=== PATIENT | male | born 2000 | race Caucasian/White ===

== ENCOUNTER 2021-07-13 15:37 | Emergency (ER) | payer SELFPAY ==
--- NOTE | 2021-07-13 15:56 | EDM.PDOC ---
ED HPI GENERAL MEDICAL PROBLEM - General Stated Complaint: COVID POS DIFFICULTY BREATHING Time Seen by Provider: 07/13/21 15:50 Source of Information: Reports: Patient History Limitations: Reports: No Limitations - History of Present Illness INITIAL COMMENTS - FREE TEXT/NARRATIVE: 20-year-old male who had onset of loss of taste and smell sense on 07/06/2021 and developed nasal congestion and cough following this. He also was seen at [facility] in [place] on 07/10/2021 for a Covid test and it came back positive. He reports that he has been drinking well but has had no appetite and has not really been eating well. He has had some feelings of increasing difficulty breathing over the past 2 days and some central sharp and scratchy type pain in his chest that he would rate it as a 5-6/10 for the past 2 days as well. It is worse when he takes a deep breath or coughs. He is noted over the past day that his difficulty breathing seems to have gotten worse and that caused him to come to the emergency department for evaluation. He has not been checking his oxygen levels at home. He has had no nausea, vomiting or diarrhea. There has been no weakness or dizziness. No hemoptysis. The cough is a hacking cough. There are no other associated signs or symptoms. There are no other modifying factors. Onset: Other (07/06/2021) Duration: Getting Worse Location: Reports: Head, Chest, Generalized Quality: Reports: Sharp, Other (Scratchy) Severity: Moderate Improves with: Reports: Rest Worsens with: Reports: Breathing, Other (Activity. Cough.), Movement Context: Reports: Other (As above.) Associated Symptoms: Reports: No Other Symptoms (Except as above.) Treatments CONTENT STRATEGY LEAD: Reports: Other (see below) (Nothing.) - Related Data Allergies Allergy/AdvReac Type Severity Reaction Status Date / Time No Known Allergies Allergy Verified 07/13/21 16:05 Past Medical History - Past Health History Medical/Surgical History: Denies Medical/Surgical History - Past Surgical History Other Surgical History Comment: No previous surgeries. Social & Family History - Tobacco Use Tobacco Use Status *Q: Current Every Day Tobacco User - Alcohol Use Alcohol Use History: Yes Alcohol Use Frequency: Socially ED ROS GENERAL - Review of Systems Review Of Systems: See Below Constitutional: Reports: Fever, Chills, Malaise, Fatigue, Decreased Appetite HEENT: Reports: Throat Pain, Other (Nasal congestion.) Respiratory: Reports: Shortness of Breath, Cough Cardiovascular: Reports: Chest Pain, Dyspnea on Exertion Endocrine: Reports: Fatigue GI/Abdominal: Denies: Abdominal Pain, Nausea, Vomiting : Denies: Dysuria, Hematuria Musculoskeletal: Reports: Other (Bodyaches.) Skin: Denies: Diaphoresis, Rash Neurological: Reports: Headache. Denies: Dizziness Hematologic/Lymphatic: Denies: Easy Bleeding, Easy Bruising Immunologic: Reports: Other (The patient has not been immunized against Covid) ED EXAM, GENERAL - Physical Exam Exam: See Below Exam Limited By: No Limitations General Appearance: Alert, WD/WN, Mild Distress ('s restaurant rate is somewhat increased. He is awake, alert and appropriately responsive and interactive.) Eye Exam: Bilateral Eye: EOMI, Normal Inspection Ears: Normal External Exam, Hearing Grossly Normal Ear Exam: Bilateral Ear: Auricle Normal Nose: No Blood, Nasal Drainage Throat/Mouth: Normal Lips, Normal Voice, No Airway Compromise, Other (Moist mucous membranes. Erythema posteriorly.) Neck: Normal Inspection, Supple, Non-Tender, Full Range of Motion Respiratory/Chest: Lungs Clear, Normal Breath Sounds, No Accessory Muscle Use, Chest Non-Tender, Other (Somewhat increased respiratory rate.) Cardiovascular: Normal Peripheral Pulses, Regular Rate, Rhythm, No Murmur Peripheral Pulses: 2+: Radial (L), Radial (R) GI/Abdominal: Normal Bowel Sounds, Soft, Non-Tender Back Exam: Normal Inspection Extremities: Normal Inspection, Normal Range of Motion, Non-Tender, No Pedal E andree, Normal Capillary Refill Neurological: Alert, Oriented, CN II-XII Intact, Normal Cognition, No Motor/Sensory Deficits Psychiatric: Normal Affect Skin Exam: Warm, Dry, Intact, Normal Color, No Rash #1 Interpretation EKG Date: 07/13/21 Time: 15:52 Rhythm: NSR Rate (Beats/Min): 102 [place]: RAD-Right [place] Deviation P-Wave: Present QRS: Normal ST-T: Normal QT: Normal Comparison: NA - No Prior EKG Course - Vital Signs Last Recorded V/S: Last Vital Signs Temp 37.6 C 07/13/21 15:37 Pulse 110 H 07/13/21 15:37 Resp 25 H 07/13/21 15:37 BP 107/72 12/12/21 15:37 Pulse Ox 91 L 07/13/21 15:37 - Orders/Labs/Meds Orders: Active Orders 24 hr Category Date Time Status Ang Chest [CT] Stat Exams 07/13/21 17:36 Taken Chest 1V Frontal [CR] Stat Exams 07/13/21 16:05 Taken Sodium Chloride 0.9% [Saline Flush] Med 07/13/21 17:17 Active 10 ml FLUSH ASDIRECTED PRN Peripheral IV Insertion Adult [OM.PC] Routine Oth 07/13/21 17:17 Ordered EKG 12 Lead [EK] Routine Ther 07/13/21 16:05 Ordered Medication Orders Sodium Chloride (Sodium Chloride 0.9% 10 Ml Syringe) 10 ml FLUSH ASDIRECTED PRN PRN Reason: Keep Vein Open Labs: Laboratory Tests 07/13/21 07/13/21 07/13/21 Range/Units 16:20 16:20 16:20 WBC 4.6 (3.2-10.1) x10-3/uL RBC 5.60 (3.90-5.90) x10(6)uL Hgb 16.3 (12.9-17.7) g/dL Hct 47.9 (38.3-50.1) % MCV 85.6 (80.8-98.7) fL MCH 29.2 (27.0-33.3) pg MCHC 34.1 (28.7-35.3) g/dL RDW 13.0 (12.4-15.0) % Plt Count 205 (117-477) x10(3)uL MPV 7.7 (6.7-11.0) fL Neut % (Auto) 75.9 H (40.3-71.8) % Lymph % (Auto) 16.6 (15.8-45.3) % [place] % (Auto) 7.3 (5.5-15.2) % Eos % (Auto) 0.0 L (0.1-6.8) % Baso % (Auto) 0.2 L (0.3-3.8) % Neut # (Auto) 3.5 (1.7-6.9) x10-3/uL Lymph # (Auto) 0.8 (0.5-4.5) x10-3/uL [place] # (Auto) 0.3 (0.0-1.2) x10-3/uL Eos # (Auto) 0.0 (0.0-0.6) x10-3/uL Baso # (Auto) 0.0 (0.0-0.3) x10-3/uL D-Dimer, Quantitative 9.33 H (0.0-0.59) mg/LFEU Sodium 134 L (135-145) mmol/L Potassium 3.4 L (3.5-5.3) mmol/L Chloride 101 (100-110) mmol/L Carbon Dioxide 21 (21-32) mmol/L BUN 13 (7-18) mg/dL Creatinine 1.3 (0.70-1.30) mg/dL Est Cr Clr Drug Dosing TNP Estimated GFR (MDRD) > 60 (>60) BUN/Creatinine Ratio 10.0 (9-20) Glucose 105 (80-116) mg/dL Calcium 7.5 L (8.6-10.2) mg/dL Magnesium (1.8-2.5) mg/dL Total Bilirubin 0.9 (0.1-1.3) mg/dL AST 29 H (5-25) IU/L ALT 29 (12-36) U/L Alkaline Phosphatase 114 H (56-112) IU/L Troponin I (4.0-60.3) pg/mL Total Protein 7.6 (6.0-8.0) g/dL Albumin 3.2 L (3.5-5.2) g/dL Globulin 4.4 g/dL Albumin/Globulin Ratio 0.7 07/13/21 07/13/21 Range/Units 16:20 16:20 WBC (3.2-10.1) x10-3/uL RBC (3.90-5.90) x10(6)uL Hgb (12.9-17.7) g/dL Hct (38.3-50.1) % MCV (80.8-98.7) fL MCH (27.0-33.3) pg MCHC (28.7-35.3) g/dL RDW (12.4-15.0) % Plt Count (117-477) x10(3)uL MPV (6.7-11.0) fL Neut % (Auto) (40.3-71.8) % Lymph % (Auto) (15.8-45.3) % [place] % (Auto) (5.5-15.2) % Eos % (Auto) (0.1-6.8) % Baso % (Auto) (0.3-3.8) % Neut # (Auto) (1.7-6.9) x10-3/uL Lymph # (Auto) (0.5-4.5) x10-3/uL [place] # (Auto) (0.0-1.2) x10-3/uL Eos # (Auto) (0.0-0.6) x10-3/uL Baso # (Auto) (0.0-0.3) x10-3/uL D-Dimer, Quantitative (0.0-0.59) mg/LFEU Sodium (135-145) mmol/L Potassium (3.5-5.3) mmol/L Chloride (100-110) mmol/L Carbon Dioxide (21-32) mmol/L BUN (7-18) mg/dL Creatinine (0.70-1.30) mg/dL Est Cr Clr Drug Dosing Estimated GFR (MDRD) (>60) BUN/Creatinine Ratio (9-20) Glucose (80-116) mg/dL Calcium (8.6-10.2) mg/dL Magnesium 2.2 (1.8-2.5) mg/dL Total Bilirubin (0.1-1.3) mg/dL AST (5-25) IU/L ALT (12-36) U/L Alkaline Phosphatase (56-112) IU/L Troponin I 6.2 (4.0-60.3) pg/mL Total Protein (6.0-8.0) g/dL Albumin (3.5-5.2) g/dL Globulin g/dL Albumin/Globulin Ratio Meds: Medications Generic Name Dose Route Start Last Admin Trade Name Freq PRN Reason Stop Dose Admin Sodium Chloride 10 ml 07/13/21 17:17 Sodium Chloride 0.9% 10 Ml Syringe FLUSH ASDIRECTED PRN Keep Vein Open Discontinued Medications Generic Name Dose Route Start Last Admin Trade Name Freq PRN Reason Stop Dose Admin Sodium Chloride 1,000 mls @ 999 mls/hr 07/13/21 17:18 07/13/21 17:30 Normal Saline IV 07/13/21 18:18 999 mls/hr .BOLUS ONE Administration Iopamidol 80 ml 07/13/21 17:44 07/13/21 18:03 Iopamidol 755 Mg/Ml 100 Ml Bottle IV 07/13/21 17:45 80 ml . DIRECTED ONE Administration - Radiology Interpretation Free Text/Narrative:: Portable chest x-ray shows bilateral patchy infiltrates consistent with Covid 19 pneumonia. CTA of the chest showed no acute pulmonary embolism. There is mild to moderate patchy pulmonary opacities bilaterally consistent with a history of Covid 19 infection and Covid pneumonia. This was per the [facility] radiologist - Re-Assessments/Exams Free Text/Narrative Re-Assessment/Exam: 07/13/21 17:38: Patient remains hemodynamically and respiratory stable. His heart rate is in the 90s and his O2 saturations are 94% on room air. He is awake, alert and appropriate. White blood cell count is 4.6. Open is 16.3. Platelet count is normal. Sodium is 134. Potassium is 3.4. Bicarbonate is 21. BUN is 13 and creatinine is 1.3. Glucose is 105. Magnesium is 2.2. LFTs are normal. The troponin was normal. EKG showed a normal sinus rhythm with an essentially normal EKG. His d-dimer was elevated at 9.33. With the patient's sharp/pleuritic central chest pain, Covid positive status and markedly elevated d-dimer, he will need a CTA of his chest to further assess for pulmonary emboli. The nursing staff is starting IV at present and the patient will receive normal saline 1 L as a bolus and I will order a CTA of the chest. This information was relayed to the patient and he is in agreement with this plan. 07/13/21 20:00: The CTA of the chest showed no evidence of pulmonary embolism. There are bilateral patchy infiltrates that are consistent with Covid pneumonia. Patient received 1 L bolus of normal saline and his pulse is down in the 80s. His O2 saturations of 97-98% on room air and he is having no evidence of respiratory distress now. He has remained hemodynamically, neurologically and respiratory stable. I did monoclonal antibody therapy with the patient. I gave him the risk and benefits associated with this therapy and offered this therapy to him. He has refused monoclonal antibody therapy at this time. For now, treatment for his open infection will be at home with him doing supportive measures. He should take ibuprofen and Tylenol as needed for fever. He should increase his fluid intake. He should rest. I did recommend that he get a home oxygen saturation monitor to check his oxygen levels at home. Departure - Departure Time of Disposition: 20:08 Disposition: Home, Self-Care 01 Condition: Good Clinical Impression: Pneumonia due to COVID-19 virus, Dehydration - Discharge Information Instructions: Dehydration, Adult, [id number], COVID-19 Frequently Asked Questions, COVID-19: Quarantine vs. Isolation - [facility] (07/18/2020), COVID-19: What to Do If You Are Sick- [facility] (10/16/2020) Referrals: Agatha Figueredo PA [Ordering Only Provider] - Additional Instructions: Your blood tests were all reassuring except for the elevated blood clot screening test. The CAT scan of your chest showed no evidence of blood clots. It did show that you had bilateral Covid pneumonia. Your EKG was also normal. You did appear to improve after the IV fluids. Your oxygen level was normal while you were in the emergency department. You need to increase your fluid intake. You can take ibuprofen and Tylenol as needed for pain and fever. You should get a home oxygen saturation monitor get this at a local discount store or pharmacy. You should use this to monitor your oxygen levels at home. Back to the emergency department for worse breathing, oxygen levels staying consistently below 90%, severe weakness, unrelenting vomiting or any other concerning signs or symptoms. You were offered monoclonal antibody therapy for Covid 19. She refuses it at this time but if one to 2 days you decide you would like this treatment, you should contact her primary provider. He would only have 10 days from onset of initial symptoms to use this therapy. Sepsis Event Note (ED) - Focused Exam Vital Signs: Vital Signs Temp Pulse Resp BP Pulse Ox 07/13/21 15:37 37.6 C 110 H 25 H 107/72 91 L - My Orders Last 24 Hours: My Active Orders 07/13/21 16:05 Chest 1V Frontal [CR] Stat EKG 12 Lead [EK] Routine 07/13/21 17:17 Sodium Chloride 0.9% [Saline Flush] 10 ml FLUSH ASDIRECTED PRN Peripheral IV Insertion Adult [OM.PC] Routine 07/13/21 17:36 Ang Chest [CT] Stat - Assessment/Plan Last 24 Hours: My Active Orders 07/13/21 16:05 Chest 1V Frontal [CR] Stat EKG 12 Lead [EK] Routine 07/13/21 17:17 Sodium Chloride 0.9% [Saline Flush] 10 ml FLUSH ASDIRECTED PRN Peripheral IV Insertion Adult [OM.PC] Routine 07/13/21 17:36 Ang Chest [CT] Stat
[2021-07-13] MEDS ORDERED: Sodium Chloride 0.9% 10 ML Syringe FLUSH PRN (17:17)
[2021-07-13] MEDS ORDERED: Sodium Chloride 0.9% 1,000 ML IV ONE (17:18)
[2021-07-13] MEDS ORDERED: Iopamidol 755 Mg/ML 100 ML Bottle IV ONE (17:44)
--- NOTE | 2021-07-14 12:35 | CR ---
INDICATION: COVID positive, difficulty breathing. CHEST, ONE VIEW: An AP upright portable view of the chest, 07/13/21 - no comparisons. Very poor inspiration is noted, emphasizing markings, making it impossible to exclude areas of patchy bronchopneumonia in the right midlung field at both lung bases, but particularly at the left lung base. No gross consolidating pneumonia or effusion was seen. The heart did not appear grossly enlarged, allowing for the poor inspiration. Overlying EKG leads are noted. No free air is noted under the hemidiaphragm leaves. IMPRESSION: 1. Cannot exclude areas of patchy infiltration in the right midlung field, extending into the lung base slightly on the right and also at the left lower lung field - lung base. 2. Full inspiration PA and lateral views of the chest may be helpful for further evaluation. MTDD
== END 2021-07-13 20:50 | disposition home or self-care (01) ==
LOC: SUPCPDRO 15:37 → FB.ED 15:37
DX: U07.1 COVID-19 (principal); J12.82 Pneumonia due to coronavirus disease 2019; E86.0 Dehydration; Z72.0 Tobacco use
CPT/HCPCS: 36415; 71045; 71275; 80053; 83735; 84484; 85025; 85379; 93005; 99285; J7030; Q9967; 93010

== ENCOUNTER 2022-11-24 03:15 | Emergency (ER) | payer BC, OTHER ==
[2022-11-24] MEDS ORDERED: LORazepam 2 MG/ML SDV ONE (03:41)
[2022-11-24] MEDS ORDERED: Metoprolol Tartrate 50 MG Tab PO ONE (03:49)
[2022-11-24] MEDS ORDERED: Metoprolol Tartrate 5 MG/5 ML SDV IVPUSH STA ×2 (03:50→03:53)
[2022-11-24 03:51] LABS: ESTIMATED GFR 87 mL/min (>60)
[2022-11-24] MEDS ORDERED: Metoprolol Tartrate 5 MG/5 ML SDV ONE (03:54)
[2022-11-24] MEDS ORDERED: LORazepam 2 MG/ML SDV IVPUSH STA ×2 (04:03→06:52)
[2022-11-24 04:05] LABS: ACETAMINOPHEN < 2 ug/mL (<2)
[2022-11-24] MEDS ORDERED: Potassium Chloride 20 MEQ Tab.ER PO SCH (05:45)
[2022-11-24] MEDS ORDERED: LORazepam 2 MG/ML SDV IVPUSH ONE ×2 (07:46→08:44)
[2022-11-24] MEDS ORDERED: Potassium Chloride 20 MEQ in Premix Bag 1 BAG IV ONE (07:55)
[2022-11-24] MEDS ORDERED: Magnesium Sulfate/Water 40 GM/1,000 ML BAG IV SCH (08:15)
[2022-11-24] MEDS ORDERED: Ondansetron 4 MG/2 ML SDV ONE (09:17)
[2022-11-24] MEDS ORDERED: Ondansetron 4 MG/2 ML SDV IVPUSH ONE (09:17)
== END 2022-11-24 09:34 ==
LOC: FB.ED 03:15
DX: T45.0X2A Poisoning by antiallergic and antiemetic drugs, intentional self-harm, initial encounter (principal); F32.A Depression, unspecified; F41.9 Anxiety disorder, unspecified; F17.210 Nicotine dependence, cigarettes, uncomplicated; Z20.822 Contact with and (suspected) exposure to COVID-19; Z86.16 Personal history of COVID-19
CPT/HCPCS: 36415; 80053; 80143; 80179; 80307; 82550; 83735; 84439; 84443; 85025; 93005; 93010; 96365; 96375; 96376; 99285; 99285-25; J2060; J2405; J3480; J3490; U0002